=== PATIENT | female | born 1935 | race Hispanic/Latino ===

== ENCOUNTER 2017-03-06 10:19 | Emergency (ER) | payer MEDICARE, BC ==
[2017-03-06 10:24] VITALS: TEMP 97.9; O2SAT 98
[2017-03-06 10:32] VITALS: BMI 23.1
--- NOTE | 2017-03-06 11:09 | ED PDOC ---
Lower Extremity Pain/Injury Time Seen by Provider: 03/06/17 11:09 Chief Complaint (Provider): right knee pain History Per: Patient Additional Complaint(s): 81-year-old female with no past medical history presents with right knee pain for 2 weeks. Patient denies trauma or injury. Patient has been taking Tylenol but this has not helped. She was seen by her primary doctor last week and had outpatient x-ray of right knee done on February 22 at this facility. Report indicated degenerative changes and no fracture or dislocation. Patient was given prescription for physical therapy for right knee from PMD but PT facility is booked and does not have any appointments for her to start this week. Patient came to ED today for further evaluation. She tried to contact her primary doctor, Dr. Paul, earlier this morning but was unable to reach him. Patient denies any numbness or tingling to right leg, denies any calf swelling or tenderness. No fever or chills. Patient is walking with a cane secondary to right knee pain. Pain is better with rest, worse with movement or walking. Past Medical History Reviewed: Historical Data, Nursing Documentation, Vital Signs Vital Signs: Last Vital Signs Temp 97.9 F 03/06/17 10:22 Pulse 101 H 03/06/17 10:22 Resp 17 03/06/17 10:22 BP 159/74 H 03/06/17 10:22 Pulse Ox 98 03/06/17 10:22 - Medical History PMH: No Chronic Diseases - Surgical History Surgical History: Tonsillectomy - Family History Family History: States: No Known Family Hx - Living Arrangements Living Arrangements: With Family - Social History Current smoker - smoking cessation education provided: No Alcohol: None Drugs: Denies - Home Medications Home Medications: Ambulatory Orders Medication Instructions Recorded No Known Home Med 05/13/16 - Allergies Allergies/Adverse Reactions: Allergies Allergy/AdvReac Type Severity Reaction Status Date / Time No Known Allergies Allergy Verified 05/13/16 16:20 Wells Criteria for PE - Wells Criteria for Pulmonary Embolism Clinical Signs and Symptoms of DVT: No P.E is #1 Diagnosis, or Equally Likely: No Heart Rate >100: No Immobilization at least 3 days;Surgery previous 4 weeks: No Previous, objectively diagnosed PE or DVT: No Hemoptysis: No Malignancy w/treatment within 6 months, or palliative: No Total Score: 0 Review of Systems ROS Statement: Except As Marked, All Systems Reviewed And Found Negative Constitutional: Negative for: Fever Cardiovascular: Negative for: Chest Pain Respiratory: Negative for: Cough Gastrointestinal: Negative for: Nausea, Vomiting Musculoskeletal: Positive for: Other (right knee pain for 2 weeks, denies fall or trauma) Neurological: Negative for: Weakness, Numbness Physical Exam - Reviewed Nursing Documentation Reviewed: Yes Vital Signs Reviewed: Yes - Physical Exam Appears: Positive for: Well, Non-toxic, No Acute Distress Skin: Negative for: Rash Eye Exam: Positive for: Normal appearance Cardiovascular/Chest: Positive for: Regular Rate, Rhythm Respiratory: Positive for: Normal Breath Sounds Extremity: Positive for: Other (mild swelling and tenderness to right anterior knee, full ROM with pain, no calf swellng or tenderness) Neurologic/Psych: Positive for: Alert, Oriented - ECG O2 Sat by Pulse Oximetry: 98 Pulse Ox Interpretation: Normal Medical Decision Making Medical Decision Makin81 year old with right knee pain Plan: PO tylenol X-ray right knee from 02/22/18 shows degenerative changes with no fx or dis. Case was d/w patient's PMD, Dr. Paul. He recommends that patient follows up with Dr. Huang. Patient was given Dr. Huang's contact information and she was advised to call today to arrange for followup visit. Disposition - Clinical Impression Clinical Impression: Knee pain - Patient ED Disposition Is Patient to be Admitted: No Counseled Patient/Family Regarding: Diagnosis, Need For Followup - Disposition Referrals: Jimmie Huang MD [Staff Provider] - Sergey Paul MD [Staff Provider] - Disposition: Routine/Home Disposition Time: 12:12 Condition: STABLE Additional Instructions: TAKE 2 TYLENOL EVERY 4 HRS AND 2 ADVIL EVERY 6 HRS ALTERNATING FOR PAIN RELIEF. ICE, REST AND ELEVATE RIGHT KNEE. CONTACT ORTHOPEDIST TO ARRANGE FOR FOLLOW UP VISIT [facility]. Instructions: Knee Pain (ED), Arthralgia (ED), Knee Exercises (GEN)
[2017-03-06 12:47] VITALS: BP 146/70; PULSE 92; RESP 18
== END 2017-03-06 12:29 | disposition home or self-care (01) ==
LOC: H.ER 10:19
DX: M25.561 Pain in right knee (principal)